=== PATIENT | male | born 1995 | race African-American/Black ===

== ENCOUNTER 2017-01-15 08:19 | Emergency (ER) | payer OTHER ==
[~2017-01-15] VITALS: Ht 190.5 cm; Wt 72.6 kg
[2017-01-15 08:41] VITALS: BP 110/64
[2017-01-15] MEDS ORDERED: IBUPROFEN 600600 M1 PO (09:38)
[2017-01-15] MEDS ORDERED: FLEXERIL PO (09:38)
== END 2017-01-15 09:49 | disposition home or self-care (01) ==
LOC: ER 08:19
DX: S39.012A Strain of muscle, fascia and tendon of lower back, initial encounter (principal); S10.83XA Contusion of other specified part of neck, initial encounter; V43.01XA Car driver injured in collision with sport utility vehicle in nontraffic accident, initial encounter; Y93.89 Activity, other specified; Y92.89 Other specified places as the place of occurrence of the external cause; Y99.8 Other external cause status